=== PATIENT | male | born 1985 | race African-American/Black ===

== ENCOUNTER 2021-01-04 21:44 | Emergency (ER) | payer SELFPAY ==
[~2021-01-04] VITALS: Ht 175.3 cm; Wt 70.9 kg
[2021-01-04] MEDS ORDERED: LIDOCAINE 2% VISCOUS 15 ML SOLUTION. SWSW ONE (23:00)
[2021-01-04] MEDS ORDERED: ACETAMINOPHEN 500 MG TABLET PO ONE (23:00)
[2021-01-04] MEDS ORDERED: OXYC-325 PO (23:49)
--- NOTE | 2021-01-04 23:49 | PHYS DOC ---
Past History Past Medical History: Hypertension Past Surgical History: No Surgical History Alcohol Use: None Adult General Chief Complaint Chief Complaint: DENTAL PROBLEM HPI HPI Patient is a 35-year-old male that presents to emergency department with dental pain. States he has a bad tooth, on his right lower jaw that began with a cavity and then chipped off. States has been that way for a few weeks. States he has an appointment with his dentist in the morning but has been unable to sleep because of the pain. States it is 8 out of 10, sharp in nature. States he tried some Tylenol and Orajel at home with minimal relief. Review of Systems Review of Systems Review of systems otherwise unremarkable except noted in the HPI Current Medications Current Medications Current Medications Medications (Trade) Dose Ordered Sig/Katie Start Time Stop Time Status Last Admin Dose Admin Acetaminophen (Tylenol) 1,000 mg 1X ONCE 01/04/21 23:00 01/04/21 23:01 DC 01/04/21 22:42 1,000 MG Lidocaine HCl (Viscous Lidocaine) 15 ml 1X ONCE 01/04/21 23:00 01/04/21 23:01 DC 01/04/21 22:45 15 ML Allergies Allergies Allergies Coded Allergies Type Severity Reaction Last Updated Verified No Known Drug Allergies 01/04/21 No Physical Exam Physical Exam Constitutional: Well developed, well nourished, no acute distress, non-toxic appearance. [] HENT: Normocephalic, atraumatic, bilateral external ears normal, oropharynx moist, no oral exudates, nose normal. Bottom right molar with apparent dental carry and tooth damage. [] Eyes: conjunctiva normal, no discharge. [] Neck: Normal range of motion, no tenderness, supple, no stridor. [] Neurologic: Alert and oriented X 3, normal motor function, normal sensory function, no focal deficits noted. [] Psychologic: Affect normal, judgement normal, mood normal. [] Current Patient Data Vital Signs Vital Signs Date Time Temp Pulse Resp B/P (MAP) Pulse Ox O2 Delivery O2 Flow Rate FiO2 01/04/21 21:44 98.9 80 16 130/72 (91) 97 Room Air EKG EKG [] Radiology/Procedures Radiology/Procedures [] Heart Score Risk Factors: Risk Factors: DM, Current or recent (<one month) smoker, HTN, HLP, family history of CAD, obesity. Risk Scores: Risk Factors: DM, Current or recent (<one month) smoker, HTN, HLP, family history of CAD, obesity. Course & Med Decision Making Course & Med Decision Making Patient is a 35-year-old male who presents with dental pain Vital signs not concerning. Physical exam noted above. Patient offered dental block but politely declined stating he did like needles. States he has a dental appointment tomorrow and just needs something to get him through the night. Patient started on Augmentin given tooth probably has underlying infection and started on pain management in the ED. Advised to keep his appointment tomorrow with his dentist. Gave strict return precautions to the ED. Family grateful, verbalized understanding and agreed with plan of discharge. [] Dragon Disclaimer Dragon Disclaimer This electronic medical record was generated, in whole or in part, using a voice recognition dictation system. Departure Departure: Impression: Primary Impression: Pain, dental Disposition: 01 DC HOME SELF CARE/HOMELESS Condition: GOOD Referrals: PCP,NO (PCP) Patient Instructions: Dental Pain Additional Instructions: Please read all the attached information. Please keep your dentist appointment tomorrow. Please continue to take ibuprofen and use your Orajel as well as your pain medication. Take your antibiotics as prescribed. Please come back to the ED with new or concerning symptoms. Scripts Oxycodone HCl/Acetaminophen (Percocet 5-325 mg Tablet) 1 Each Tablet 1 TAB PO PRN BID PRN for dental pain MDD 2 Tablet(s) for 3 Days, #6 TAB 0 Refills Prov: SHNANON FRANK MD 01/04/21 SHANNON FRANK MD Jan 04, 2021 23:49
[2021-01-05] MEDS ORDERED: IBUPROFEN 600 MG TABLET. PO ONE
[2021-01-05] MEDS ORDERED: oxyCODONE/APAP 5/325 1 TAB TABLET PO ONE
[2021-01-05] MEDS ORDERED: AMOXICILLIN/K CLAV 875/125MG TABLET. PO ONE
[2021-01-05 00:05] VITALS: BP 124/66
== END 2021-01-05 | disposition home or self-care (01) ==
LOC: ER 21:44
DX: K02.9 Dental caries, unspecified (principal); I10 Essential (primary) hypertension
CPT/HCPCS: 99284

== ENCOUNTER 2021-02-28 16:36 | Emergency (ER) | payer SELFPAY ==
[~2021-02-28] VITALS: Ht 175.3 cm; Wt 70.9 kg
[~2021-02-28 16:36] MED LIST: OXYC-325 PO
[2021-02-28 16:40] VITALS: BP 123/78
[2021-02-28] MEDS ORDERED: IBUPROFEN 600 MG TABLET. PO ONE (17:00)
[2021-02-28] MEDS ORDERED: ACETAMINOPHEN 500 MG TABLET PO ONE (17:00)
[2021-02-28] MEDS ORDERED: BENZOCAINE ONE 20% MUCOSAL SPRAY. MM (17:00)
--- NOTE | 2021-02-28 17:00 | PHYS DOC ---
Past History Past Medical History: Hypertension Past Surgical History: No Surgical History Alcohol Use: None Adult General Chief Complaint Chief Complaint: DENTAL PROBLEM HPI HPI Patient is a 35-year-old male presents emergency department complaining of right lower rear molar pain for the past week. Patient states he was seen here back in December for the same thing, was started on pain medications and antibiotics, intended to see a dentist however the antibiotics and pain medications took his tooth pain away and he never went to see his dentist. Patient denies any loss of taste or loss of smell, denies any numbness to his face or tongue. Denies any problems swallowing. Denies chest pain, chest congestion, or shortness of breath. Patient denies any ear pains. Patient denies any other physical complaints or physical concerns. Review of Systems Review of Systems 14 body systems of review of systems have been reviewed. See HPI for pertinent positives and negative responses, otherwise all other systems are negative, nonpertinent or noncontributory. Allergies Allergies Allergies Coded Allergies Type Severity Reaction Last Updated Verified No Known Drug Allergies 01/04/21 No Physical Exam Physical Exam Constitutional: Well developed, well nourished, no acute distress, non-toxic appearance. 35-year-old male in no apparent distress. HENT: Normocephalic, atraumatic, bilateral external ears normal, oropharynx shaggy st, no oral exudates, nose normal. Poor dental caries, patient's complaint tooth with marked dental decay, no abscess noted, pulp visualized, no trismus, no drooling appreciated, oropharynx moist, pink, no infectious process appreciated, no laryngeal edema appreciated. No lymphadenopathy of the head or neck appreciated. Eyes: PERRLA, EOMI, conjunctiva normal, no discharge. Neck: Normal range of motion, no tenderness, supple, no stridor. No nuchal rigidity, no meningismus signs. Cardiovascular: No cyanosis appreciated, distal cap refill less than 2 seconds. Lungs & Thorax: Patient no apparent distress, no audible adventitious lung sounds appreciated. Skin: Warm, dry, no erythema, no rash. Extremities: No tenderness, no cyanosis, no clubbing, ROM intact, no edema. Distal cap refill less than 2 seconds Neurologic: Alert and oriented X 3, normal motor function, normal sensory function, no focal deficits noted. Psychologic: Affect normal, judgement normal, mood normal. Current Patient Data Vital Signs Vital Signs Date Time Temp Pulse Resp B/P (MAP) Pulse Ox O2 Delivery O2 Flow Rate FiO2 02/28/21 16:40 97.9 50 16 123/78 (93) 99 Room Air EKG EKG [] Radiology/Procedures Radiology/Procedures [] Heart Score C/O Chest Pain: No Risk Factors: Risk Factors: DM, Current or recent (<one month) smoker, HTN, HLP, family history of CAD, obesity. Risk Scores: Risk Factors: DM, Current or recent (<one month) smoker, HTN, HLP, family history of CAD, obesity. Course & Med Decision Making Course & Med Decision Making Pertinent Labs and Imaging studies reviewed. (See chart for details) 35-year-old male, vital signs reviewed, presents emergency department complaining of dental pain. After such a chart review, patient was here in this past December and was treated for the same complaint, patient states he did not go see the dentist because his tooth felt better after the treatment he received in the ER. Discussed with patient he needs to follow-up with a dentist. Patient states that he works a lot does not always have the time to do so, also does not have dental insurance. Discussed with patient will treat with topical anesthetic to his tooth, give Tylenol and Motrin for pain, will prescribe ibuprofen for home use also describe Peridex oral wash, start on Augmentin for dental infection. Patient gave verbal understanding discharge home instructions, follow-up with dentist soon, return to ER precautions or concerns, was discharged home without incident. Dragon Disclaimer Dragon Disclaimer This electronic medical record was generated, in whole or in part, using a voice recognition dictation system. Departure Departure: Impression: Primary Impression: Dentalgia Additional Impressions: Dental caries into pulp Pain, dental Disposition: 01 DC HOME SELF CARE/HOMELESS Condition: GOOD Referrals: PCP,NO (PCP) Patient Instructions: Dental Abscess Additional Instructions: You have been seen today for dental infection, please take your antibiotic as prescribed, take ibuprofen as needed for pain, use the dental wash swish and spit to prevent further infection. Please return to the emergency department for worsening symptoms or other concerns. EMERGENCY DEPARTMENT GENERAL DISCHARGE INSTRUCTIONS Thank you for coming to [facility] (ED) today and trusting us with you care. We trust that you had a positivie experience in our Emergency Department. If you wish to speak to the department management, you may call the director at [phone]. YOUR FOLLOW UP INSTRUCTIONS ARE FOLLOWS: 1. Do you have a private Doctor? If you do not have a private doctor, please ask for a resource list of physicians or clinics that may be able to assist you with foll ow up care. 2. The Emergency Physician has interpreted your x-rays. The X-Ray specialist will also review them. If there is a change in the findings, you will be notified in 48 hours when at all possible. 3. A lab test or culture has been done, your results will be reviewed and you will be notified if you need a change in treatment. ADDITIONAL INSTRUCTIONS AND INFORMATION: 1. Your care today has been supervised by a physician who is specially trained in emergency care. Many problems require more than one evaluation for a complete diagnosis and treatment. We recommend that you schedule your follow up appointment as re commended to ensure complete treatment of you illness or injury. If you are unable to obtain follow up care and continue to have a problem, or if your condition worsens, we recommend that you return to the ED. 2. We are not able to safely determine your condition over the phone nor are we able to give sound medical advice over the phone. For these safety reasons, if you call for medical advice we will ask you to come to the ED for further evaluation. 3. If you have any questions regarding these discharge instructions please call the ED at [phone]. SAFETY INFORMATION: In the interest of safety, wellness, and injury prevention; we encourage you to wear your sealbelt, if you smoke; quite smoking, and we encourage family to use a protective helmet for bicycling and other sporting events that present an increased risk for head injury. IF YOUR SYMPTOMS WORSEN OR NEW SYMPTOMS DEVELOP, OR YOU HAVE CONCERNS ABOUT YOUR CONDITION; OR IF YOUR CONDITION WORSENS WHILE YOU ARE WAITING FOR YOUR FOLLOW UP APPOINTMENT; EITHER CONTACT YOUR PRIMARY CARE DOCTOR, THE PHYSICIAN WHOSE NAME AND NUMBER YOU WERE GIVEN, OR RETURN TO THE ED IMMEDIATELY. Scripts Amoxicillin/Potassium Clav (AUGMENTIN 875-125 TABLET) 1 Each Tablet 1 TAB PO BID for DENTAL INFECTION for 10 Days, #20 TAB 0 Refills Prov: MARY ANNE LOPEZ SOCK LINER 02/28/21 Ibuprofen (IBUPROFEN) 600 Mg Tablet 600 MG PO TID PRN PRN for PAIN, #20 TAB 0 Refills Prov: MARY ANNE LOPEZ SOCK LINER 02/28/21 Chlorhexidine Gluconate (PERIDEX) 15 Ml Mouthwash 15-30 ML PO TID for DENTAL INFECTION for 8 Days, #473 ML 0 Refills Prov: MARY ANNE LOPEZ SOCK LINER 02/28/21 Problem Qualifiers MARY ANNE LOPEZ SOCK LINER Feb 28, 2021 17:00
[2021-02-28] MEDS ORDERED: IBUP600T16 PO (17:17)
[2021-02-28] MEDS ORDERED: AMOX1TAB61 PO (17:17)
[2021-02-28] MEDS ORDERED: CHLO15MO2 PO (17:17)
== END 2021-02-28 17:24 | disposition home or self-care (01) ==
LOC: ER 16:36
DX: K02.9 Dental caries, unspecified (principal); I10 Essential (primary) hypertension
CPT/HCPCS: 99283-25

== ENCOUNTER 2021-05-25 18:27 | Emergency (ER) | payer SELFPAY ==
[~2021-05-25] VITALS: Ht 175.3 cm; Wt 70.9 kg
[~2021-05-25 18:27] MED LIST changes: +AMOX1TAB61 PO; +CHLO15MO2 PO; +IBUP600T16 PO
[2021-05-25 19:00] VITALS: BP 142/87
[2021-05-25] MEDS ORDERED: BENZOCAINE ONE 20% MUCOSAL SPRAY. MM (19:30)
[2021-05-25] MEDS ORDERED: AMOXICILLIN/K CLAV 875/125MG TABLET. PO ONE (19:30)
[2021-05-25] MEDS ORDERED: HYDROcodone/APAP 5/325MG 1 TAB TABLET PO ONE (19:30)
--- NOTE | 2021-05-25 19:36 | PHYS DOC ---
Past History Past Medical History: Hypertension Past Surgical History: No Surgical History Alcohol Use: None Adult General Chief Complaint Chief Complaint: DENTAL PROBLEM HPI HPI Patient is a 35-year-old male who presents with dental pain. States he has been having dental problems for the past 6 months or so and has been to the emergency department a couple times but has not been able to contact a dentist. States that the pain comes and goes, is 8 at its worst and 2 at its best. Denies any fevers, jaw pain, pain or trouble swallowing, chest pain, shortness of breath, abdominal pain, nausea, vomiting. States he has not taken anything for the pain today including Tylenol, ibuprofen or Orajel as he has been recommended in the past. Review of Systems Review of Systems Review of systems otherwise unremarkable except noted in HPI Allergies Allergies Allergies Coded Allergies Type Severity Reaction Last Updated Verified No Known Drug Allergies 01/04/21 No Physical Exam Physical Exam Constitutional: Well developed, well nourished, no acute distress, non-toxic appearance. [] HENT: Normocephalic, atraumatic, bilateral external ears normal, oropharynx moist, no oral exudates, nose normal. [] Eyes: conjunctiva normal, no discharge. [] Neck: Normal range of motion, no tenderness, supple, no stridor, no lymphadenopathy. [] Neurologic: Alert and oriented X 3, normal motor function, normal sensory function, able to sit, stand and walk without issue, no focal deficits noted. [] Psychologic: Affect normal, judgement normal, mood normal. [] EKG EKG [] Radiology/Procedures Radiology/Procedures [] Heart Score C/O Chest Pain: No Risk Factors: Risk Factors: DM, Current or recent (<one month) smoker, HTN, HLP, family history of CAD, obesity. Risk Scores: Risk Factors: DM, Current or recent (<one month) smoker, HTN, HLP, family history of CAD, obesity. Course & Med Decision Making Course & Med Decision Making Patient is a 35-year-old male who presents with dental pain Vital signs not concerning. Physical exam noted above. Patient declined dental block Given oral pain medications and topical anesthesia in the ED. Started on Augmentin. Discussed pain management at home. Given resources for local free clinics, dentist and emergency dentist. Gave strict return precautions to the ED. Patient grateful, verbalized understa nding and agreed with plan of discharge. [] Dragon Disclaimer Dragon Disclaimer This electronic medical record was generated, in whole or in part, using a voice recognition dictation system. Departure Departure: Impression: Primary Impression: Pain, dental Disposition: HOME / SELF CARE / HOMELESS Condition: IMPROVED Referrals: PCP,NO (PCP) LISA CALI MD Patient Instructions: Dental Caries, Dental Pain Additional Instructions: Thank you for coming into the emergency department tonight and allowing us to take care of you. Please read all of the attached information very carefully to go back over what we discussed. You can begin a Tylenol, ibuprofen, Orajel and Benadryl regimen as discussed. You are also given resources for local free clinics, dentist and emergency dentist. Please call first thing in the morning to immediately establish care as any infection or damage you have in your teeth will only be resolved once the tooth is either repaired or removed. Please come back to the ED with new or concerning symptoms as discussed. SHANNON FRANK MD May 25, 2021 19:36
[2021-05-25] MEDS ORDERED: IBUPROFEN 800 MG TABLET. PO ONE (19:45)
[2021-05-25] MEDS ORDERED: AMOX1TAB61 PO (19:54)
== END 2021-05-25 19:56 | disposition home or self-care (01) ==
LOC: ER 18:27
DX: K08.89 Other specified disorders of teeth and supporting structures (principal); I10 Essential (primary) hypertension
CPT/HCPCS: 99284

== ENCOUNTER 2021-08-03 13:07 | Emergency (ER) | payer SELFPAY ==
[~2021-08-03] VITALS: Ht 175.3 cm; Wt 60.9 kg
[2021-08-03 13:16] VITALS: BP 165/81
--- NOTE | 2021-08-03 13:29 | PHYS DOC ---
Past History Past Medical History: Hypertension Past Surgical History: No Surgical History Alcohol Use: None Adult General Chief Complaint Chief Complaint: HEMORRHOIDS HPI HPI Patient is a 36-year-old male presenting for hemorrhoids. Reports he has history of on and off constipation, states it is been worse recently without any known change in diet, activity or other known exacerbating factor. Reports he has been straining more than usual and for past 72 hours has been suffering from an hemorrhoid. Reports it is painful, is irritating when he wipes and sometimes produces bright red blood on toilet paper. He tried pushing it back in but it did not work. States it is symptomatic when he walks and when he is at work prompting him to come in for evaluation. States only is tried at home is warm bath soaks that provided minimal relief last night Review of Systems Review of Systems Fourteen body systems of review of systems have been reviewed. See HPI for pertinent positives and negative responses, other joel all other systems are negative, non-pertinent or non-contributory Allergies Allergies Allergies Coded Allergies Type Severity Reaction Last Updated Verified No Known Drug Allergies 08/03/21 No Physical Exam Physical Exam Constitutional: Well developed, well nourished, no acute distress, non-toxic appearance. HENT: Normocephalic, atraumatic, bilateral external ears normal, oropharynx moist, no oral exudates, nose normal. Eyes: PERRLA, EOMI, conjunctiva normal, no discharge. Neck: Normal range of motion, no tenderness, supple, no stridor. Cardiovascular: Heart rate regular, sinus rhythm, no murmurs rubs or gallops Lungs & Thorax: Bilateral breath sounds clear to auscultation Abdomen: Bowel sounds normal, soft, no tenderness, no masses, no pulsatile masses. Nonsurgical abdomen, no peritoneal signs. Rectal exam performed. Patient has a external hemorrhoid that is nonthrombosed without other major findings present at 1 o'clock position Skin: Warm, dry, no erythema, no rash. Back: No tenderness, no CVA tenderness. Extremities: No tenderness, no cyanosis, no clubbing, ROM intact, no edema. Neurologic: Alert and oriented X 3, grossly normal motor & sensory function, no focal deficits noted. Psychologic: Affect normal, judgement normal, anxious mood Current Patient Data Vital Signs Vital Signs Date Time Temp Pulse Resp B/P (MAP) Pulse Ox O2 Delivery O2 Flow Rate FiO2 9/14/21 13:16 98.3 60 20 165/81 (109) 100 Room Air EKG EKG [] Radiology/Procedures Radiology/Procedures [] Heart Score C/O Chest Pain: No Risk Factors: Risk Factors: DM, Current or recent (<one month) smoker, HTN, HLP, family history of CAD, obesity. Risk Scores: Risk Factors: DM, Current or recent (<one month) smoker, HTN, HLP, family history of CAD, obesity. Course & Med Decision Making Course & Med Decision Making ABCs unremarkable. I disclosed entirety of ER findings and discussed most likely diagnosis of uncomplicated external hemorrhoid. Other diagnoses were discussed with patient such as thrombosed hemorrhoid versus other concerning diagnoses but all deemed less likely causes of patient's presentation. Plan of care discussed at length with need for close outpatient follow-up to review today's ER visit stressed. Strict return precautions were also discussed at length with good understanding verbalized by patient. Patient voiced understanding and agreement with the plan. Patient knows to come back for repeat evaluation if concerning signs or symptoms present prior to outpatient follow-up. Hemodynamically stable, ambulatory and well-appearing at time of disposition. Dragon Disclaimer Dragon Disclaimer This electronic medical record was generated, in whole or in part, using a voice recognition dictation system. Departure Departure: Impression: Primary Impression: External hemorrhoid Disposition: HOME / SELF CARE / HOMELESS Condition: STABLE Referrals: PCP,NO (PCP) Patient Instructions: Hemorrhoids Additional Instructions: You were seen for hemorrhoids and rectal bleeding. You should make sure to keep your stools chest pasoft by drinking plenty of water and eating foods with plenty of fiber. You should use sitz baths and stool softeners as needed for pain. Return to the ED if you develop heavy bleeding, pain, fever, abdominal pain, lightheadedness, chest pain, shortness of breath, or any other new or concerning symptoms. Scripts Hydrocortisone (PREPARATION H) 26 Gm Cream..g. 26 GM TP 1-2XD for HEMORRHOIDS, #1 EACH Prov: VIRY RUIZ DO 08/03/21 VIRY RUIZ DO Aug 03, 2021 13:29
[2021-08-03] MEDS ORDERED: HYDR26CR2 TP (13:38)
== END 2021-08-03 13:46 | disposition home or self-care (01) ==
LOC: ER 13:07
DX: K64.4 Residual hemorrhoidal skin tags (principal); I10 Essential (primary) hypertension
CPT/HCPCS: 99282